=== PATIENT | male | born 1990 | race Two or more races ===

== ENCOUNTER 2020-04-15 11:05 | Emergency (ER) | payer BC, OTHER ==
[2020-04-15] MEDS ORDERED: Sodium Chloride 0.9% 10 ML Syringe FLUSH PRN (11:12)
[2020-04-15] MEDS ORDERED: Sodium Chloride 0.9% 2.5 ML Syringe FLUSH PRN (11:12)
[2020-04-15] MEDS ORDERED: Aspirin 81 MG Tab.Chew PO ONE (11:13)
--- NOTE | 2020-04-15 11:34 | CT ---
INDICATION: Stroke symptoms. COMPARISON: None. TECHNIQUE: CT head without intravenous contrast ;Coronal and sagittal reformats. FINDINGS: No intracranial hemorrhage. No mass lesions. No evidence of shift of the midline structures. The calvarium is unremarkable. The ventricular system, the subarachnoid cisterns and the cerebral sulci are unremarkable stalk. IMPRESSION: Negative unenhanced head CT. Please note that all CT scans at this facility use dose modulation, iterative reconstruction, and/or weight-based dosing when appropriate to reduce radiation dose to as low as reasonably achievable. Dictated by Claire Groves MD @ Apr 15 2020 11:31AM Signed by Dr. Claire Groves @ Apr 15 2020 11:34AM
[2020-04-15 11:59] LABS: BLOOD UREA NITROGEN,BUN 12 mg/dL (7.0-18.0); CARBON DIOXIDE,CO2 28.5 mmol/L (21.0-32.0); CHLORIDE,CL 102 mmol/L (98-107); GLUCOSE RANDOM 119 mg/dL (74-106); POTASSIUM,K 3.4 mmol/L (3.5-5.1); SODIUM,NA 138 mmol/L (136-148)
--- NOTE | 2020-04-15 12:01 | EDM.PDOC ---
ED [facility] GENERAL MEDICAL PROBLEM - General Chief Complaint: Neuro Symptoms/Deficits Stated Complaint: POSSIBLE STROKE Time Seen by Provider: 04/15/20 11:34 Source of Information: Reports: Patient, Old Records History Limitations: Reports: No Limitations - History of Present Illness INITIAL COMMENTS - FREE TEXT/NARRATIVE: 30-year-old male with no past medical history presenting with concern for stroke symptoms. Patient states that around 10:50 AM, he began experiencing numbness to the left side of his face along with weakness to his left upper extremity and left lower extremity. Since then, the tingling sensation to the face has resolved and the weakness to his left upper and lower extremities has improved but is still present. He denies any facial droop, slurred speech, visual changes, headache, neck pain, history of prior CVA or TIA, chest pain, or shortness of breath. ROS: A 10-point review of systems was negative, except as noted in the HPI (or in the ROS section of this note). Past medical history: Reviewed, no additional pertinent history. Surgical history: Reviewed in system, no additional pertinent history. Social history: Reviewed in system, no additional pertinent history. Family history: Reviewed in system, no additional pertinent history. PHYSICAL EXAM Vital signs reviewed. Nursing notes reviewed. Constitutional: Awake, alert, non-distressed. Head: Normocephalic, atraumatic. Eyes: Pupils 3 mm bilaterally, EOMI, conjunctiva normal, no discharge, no scleral icterus. Ears, Nose, Throat: External ears and nose normal, moist oral mucosa. Cardiovascular: 2+ radial pulse, capillary refill less than 2 seconds. Pulmonary: normal work of breathing, no accessory muscle use. Abdomen/GI: Soft, nontender, nondistended, no guarding or rigidity, no masses. Musculoskeletal: No deformities. Integumentary: Appropriate color for ethnicity, warm, dry, no pallor or jaundice , no rash. Neurologic: Awake, alert, and oriented x3. Cranial nerves II through XII intact. No facial droop or dysarthria. No temporal artery tenderness. Supple neck with normal range of motion. No pronator drift. Normal rliqtd-brkg-pefjzl and cepu-bf-nglj. No dysdiadochokinesia. 5/5 strength in all extremities. Sensation intact to light touch x4. Negative Romberg. Normal gait. Normal visual michele, no field cuts. Able to sit, stand, and ambulate without assistance. Psychiatric: Appropriate mood and affect, normal thought process. This patient was seen and evaluated during the 2019 SARS-CoV-2 novel coronavirus pandemic period. Community viral transmission is ongoing at time of this encounter and the emergency department is operating under pandemic response procedures. - Related Data Allergies Allergy/AdvReac Type Severity Reaction Status Date / Time No Known Allergies Allergy Verified 04/15/20 11:13 Home Meds: Home Meds Aspirin [Aspirin EC] 81 mg PO DAILY 30 Days #30 tablet. 04/15/20 [Rx] amLODIPine Besylate [Amlodipine Besylate] 10 mg PO DAILY 30 Days #30 tablet 04/15/20 [Rx] Past Medical History Cardiovascular History: Reports: Hypertension - Infectious Disease History Infectious Disease History: Reports: None Social & Family History - Family History Family Medical History: No Pertinent Family History - Tobacco Use Tobacco Use Status *Q: Unknown Ever Used Tobacco - Recreational Drug Use Recreational Drug Use: No ED ROS GENERAL - Review of Systems Review Of Systems: See Below ED EXAM, NEURO - Physical Exam Exam: See Below #1 Interpretation EKG Interpretation Comments: 12-Lead ECG Interpretation Acquired: 11:54 AM Rhythm: Sinus rhythm Rate: 74 bpm [place]: Normal Intervals: Normal Ectopy: None RV Strain: No obvious RV strain pattern. ST Segments/T-Waves: No notable changes Acute Ischemic Changes: None apparent Interpretation: No STEMI Course - Vital Signs Text/Narrative:: 30-year-old male presenting with complaints of left-sided facial numbness and left upper and lower extremity weakness. Patient hemodynamically stable, afebrile, well-appearing, looks nontoxic. Differential diagnosis includes but is not limited to: CVA, TIA, intracranial hemorrhage, demyelinating disease, MS, electrolyte disturbance, arrhythmia, anemia, and many others. Patient was declared a stroke code upon arrival. He was immediately roomed. His initial examination shows no neurologic deficits. NIH stroke scale is 0. The patient does complain of subjective weakness in the left arm and leg but I do not appreciate any weakness by examination. Patient was taken to the CT scanner for angiographic imaging of the head and neck, all CT studies are unremarkable. We obtained a twelve-lead EKG which shows no evidence of atrial fibrillation or ischemia. Labs are largely unremarkable, mild hypokalemia at 3.4. Negative troponin. Normal renal function and cell lines. I reevaluated the patient and he continues to have no evidence of any neurologic deficits. When I reevaluated him at approximately 12:30 PM, he states that the sensation of weakness in his left arm and leg have resolved and he feels that he is back to normal. He now has no symptoms. Symptoms have resolved so he is not a candidate for systemic thrombolysis. There was some concern for TIA given complete resolution of symptoms with a nonfocal examination. I did call our on-call neurologist Dr. Penelope Be to discuss the case. She states that she would like to see him in her clinic tomorrow morning at 8 AM. She plans to order an outpatient MRI. In the meantime we will start him on antihypertensive medications along with 81 mg of aspirin once daily until he can be seen by the neurologist. I also told him that he needs to follow-up with a family medicine clinic in the next few weeks for follow-up of his hypertension and for general medical examination. We did discuss ED return precautions including recurrence of symptoms, severe headache, slurred speech, facial droop, or any other new or concerning symptoms. The patient voiced understanding and had no further questions. He was discharged in good condition. Last Recorded V/S: Last Vital Signs Temp 36.7 C 04/15/20 11:13 Pulse 94 04/15/20 11:35 Resp 18 04/15/20 11:35 BP 171/90 H 04/15/20 11:35 Pulse Ox 98 04/15/20 11:35 - Orders/Labs/Meds Orders: Active Orders 24 hr Category Date Time Status Assess Neurological Status [RC] CONTINUOUS Care 04/15/20 11:18 Active Blood Glucose Check, Bedside [RC] STAT Care 04/15/20 11:18 Active Cardiac Monitoring [RC] . DIRECTED Care 04/15/20 11:12 Active EKG Documentation Completion [RC] STAT Care 04/15/20 11:12 Active Height and Weight [RC] UPON Care 04/15/20 11:18 Active NIH Stroke Scale [RC] Q15M Care 04/15/20 11:18 Active NIH Stroke Scale [RC] STAT Care 04/15/20 11:18 Active Nursing Bedside Swallow Screen [RC] STAT Care 04/15/20 11:18 Active Pulse Oximetry [RC] ASDIRECTED Care 04/15/20 11:12 Active Nothing Per Oral Diet [DIET] Diet 04/15/20 Breakfast Active Sodium Chloride 0.9% [Saline Flush] Med 04/15/20 11:12 Active 10 ml FLUSH ASDIRECTED PRN Sodium Chloride 0.9% [Saline Flush] Med 04/15/20 11:12 Active 2.5 ml FLUSH ASDIRECTED PRN Saline Lock Insert [OM.PC] Stat Oth 04/15/20 11:12 Ordered Medication Orders Sodium Chloride (Saline Flush) 10 ml FLUSH ASDIRECTED PRN PRN Reason: Keep Vein Open Last Admin: 04/15/20 11:35 Dose: 10 ml Documented by: LULA Sodium Chloride (Saline Flush) 2.5 ml FLUSH ASDIRECTED PRN PRN Reason: Keep Vein Open Last Admin: 04/15/20 11:35 Dose: 2.5 ml Documented by: LULA Labs: Laboratory Tests 04/15/20 04/15/20 04/15/20 Range/Units 11:10 11:10 11:10 WBC 6.49 (4.0-11.0) K/uL RBC 4.92 (4.50-5.90) M/uL Hgb 15.2 (13.0-17.0) g/dL Hct 44.5 (38.0-50.0) % MCV 90.4 (80.0-98.0) fL MCH 30.9 (27.0-32.0) pg MCHC 34.2 (31.0-37.0) g/dL RDW Std Deviation 41.2 (28.0-62.0) fl RDW Coeff of Flor 12 (11.0-15.0) % Plt Count 306 (150-400) K/uL MPV 9.90 (7.40-12.00) fL Neut % (Auto) 51.9 (48.0-80.0) % Lymph % (Auto) 35.9 (16.0-40.0) % [place] % (Auto) 11.4 (0.0-15.0) % Eos % (Auto) 0.6 (0.0-7.0) % Baso % (Auto) 0.2 (0.0-1.5) % Neut # (Auto) 3.4 (1.4-5.7) K/uL Lymph # (Auto) 2.3 (0.6-2.4) K/uL [place] # (Auto) 0.7 (0.0-0.8) K/uL Eos # (Auto) 0.0 (0.0-0.7) K/uL Baso # (Auto) 0.0 (0.0-0.1) K/uL Nucleated RBC % 0.0 /100WBC Nucleated RBCs # 0 K/uL INR 1.06 APTT 26.4 (18.6-31.3) SEC Sodium 138 (136-148) mmol/L Potassium 3.4 L (3.5-5.1) mmol/L Chloride 102 (98-107) mmol/L Carbon Dioxide 28.5 (21.0-32.0) mmol/L BUN 12 (7.0-18.0) mg/dL Creatinine 1.0 (0.8-1.3) mg/dL Est Cr Clr Drug Dosing 100.07 mL/min Estimated GFR (MDRD) > 60.0 ml/min Glucose 119 H (74-106) mg/dL Calcium 9.1 (8.5-10.1) mg/dL Total Bilirubin 0.3 (0.2-1.0) mg/dL AST 19 (15-37) IU/L ALT 32 (14-63) IU/L Alkaline Phosphatase 99 (46-116) U/L Troponin I < 0.050 (0.000-0.056) ng/mL Total Protein 8.3 H (6.4-8.2) g/dL Albumin 4.6 (3.4-5.0) g/dL Globulin 3.7 (2.6-4.0) g/dL Albumin/Globulin Ratio 1.2 (0.9-1.6) Meds: Medications Generic Name Dose Route Start Last Admin Trade Name Freq PRN Reason Stop Dose Admin Sodium Chloride 10 ml 04/15/20 11:12 04/15/20 11:35 Saline Flush FLUSH 10 ml ASDIRECTED PRN Administration Keep Vein Open Sodium Chloride 2.5 ml 04/15/20 11:12 04/15/20 11:35 Saline Flush FLUSH 2.5 ml ASDIRECTED PRN Administration Keep Vein Open Discontinued Medications Generic Name Dose Route Start Last Admin Trade Name Mor PRN Reason Stop Dose Admin Aspirin 324 mg 04/15/20 11:13 04/15/20 11:34 Aspirin PO 04/15/20 11:14 324 mg ONETIME ONE Administration Departure - Departure Time of Disposition: 12:41 Disposition: Home, Self-Care 01 Condition: Good Clinical Impression: Transient left leg weakness, Left arm weakness, Left facial numbness - Discharge Information *PRESCRIPTION DRUG MONITORING PROGRAM REVIEWED*: Not Applicable *COPY OF PRESCRIPTION DRUG MONITORING REPORT IN PATIENT JESSA: Not Applicable Prescriptions: amLODIPine Besylate [Amlodipine Besylate] 10 mg PO DAILY 30 Days #30 tablet Aspirin [Aspirin EC] 81 mg PO DAILY 30 Days #30 tablet.dr Instructions: Paresthesia Referrals: Penelope Be MD [Physician] - 1 Day (Follow-up tomorrow at 8 AM for your neurology clinic appointment.) Forms: ED Department Discharge Additional Instructions: You were seen in the emergency department for facial tingling and left arm and leg weakness. CT scans, blood work, and EKG look reassuring at this point. I am glad that your symptoms went away. We do want you to follow-up with the neurology clinic tomorrow at 8:00 in the morning. I did prescribe some medications for high blood pressure and some aspirin, take these as directed. You need to follow-up with a family medicine clinic in the next few weeks for follow-up of your high blood pressure. Warning signs to come back to the ER include: Facial droop, slurred speech, severe headache or neck pain, weakness of the arm or leg, or any other new or concerning symptoms. Please return the emergency department immediately if your symptoms worsen or if you feel worse. Thank you for choosing the [facility] emergency department in [place] for your medical needs today. It was a pleasure caring for you. The following information is given to patients seen in the emergency department who are being discharged. This information is to outline your options for follow-up care. We provide all patients seen in our emergency department with a follow-up referral. The need for follow-up, as well as the timing and circumstances, are variable de pending upon the specifics of your emergency department visit. If you don't have a primary care physician on staff, we will provide you with a referral. We always advise you to contact your personal physician following an emergency department visit to inform them of the circumstance of the visit and for follow-up with them and/or the need for any referrals to a consulting specialist. The emergency department will also refer you to a specialist when appropriate. This referral assures that you have the opportunity for follow-up care with a specialist. All of these measure are taken in an effort to provide you with optimal care, which includes your follow-up. Under all circumstances we always encourage you to contact your private physician who remains a resource for coordinating your care. When calling for follow-up care, please make the office aware that this follow-up is from your recent emergency room visit. If for any reason you are refused follow-up, please contact the [facility] Emergency Department at and asked to speak to the emergency department charge nurse. If you do not have a primary care physician that is caring for you, you can contact these clinics below to set up an appointment to establish care: [facility] - Primary Care [address] [place] [id number] [facility] [address] [place] [id number] Sepsis Event Note (ED) - Evaluation Sepsis Screening Result: No Definite Risk - Focused Exam Vital Signs: Vital Signs Temp Pulse Resp BP Pulse Ox 04/15/20 11:35 94 18 171/90 H 98 04/15/20 11:13 36.7 C 89 18 200/103 H 98 - My Orders Last 24 Hours: My Active Orders 04/15/20 Breakfast Nothing Per Oral Diet [DIET] 04/15/20 11:12 Cardiac Monitoring [RC] . DIRECTED EKG Documentation Completion [RC] STAT Pulse Oximetry [RC] ASDIRECTED Sodium Chloride 0.9% [Saline Flush] 10 ml FLUSH ASDIRECTED PRN Sodium Chloride 0.9% [Saline Flush] 2.5 ml FLUSH ASDIRECTED PRN Saline Lock Insert [OM.PC] Stat 04/15/20 11:18 Assess Neurological Status [RC] CONTINUOUS Blood Glucose Check, Bedside [RC] STAT Height and Weight [RC] UPON NIH Stroke Scale [RC] Q15M NIH Stroke Scale [RC] STAT Nursing Bedside Swallow Screen [RC] STAT - Assessment/Plan Last 24 Hours: My Active Orders 04/15/20 Breakfast Nothing Per Oral Diet [DIET] 04/15/20 11:12 Cardiac Monitoring [RC] . DIRECTED EKG Documentation Completion [RC] STAT Pulse Oximetry [RC] ASDIRECTED Sodium Chloride 0.9% [Saline Flush] 10 ml FLUSH ASDIRECTED PRN Sodium Chloride 0.9% [Saline Flush] 2.5 ml FLUSH ASDIRECTED PRN Saline Lock Insert [OM.PC] Stat 04/15/20 11:18 Assess Neurological Status [RC] CONTINUOUS Blood Glucose Check, Bedside [RC] STAT Height and Weight [RC] UPON NIH Stroke Scale [RC] Q15M NIH Stroke Scale [RC] STAT Nursing Bedside Swallow Screen [RC] STAT
--- NOTE | 2020-04-15 12:14 | CT ---
INDICATION: Acute stroke. TECHNIQUE: After standard noncontrast head CT, high resolution axial CT images acquired through the head and neck following rapid intravenous administration of iodinated contrast. Multiplanar MIPS of cranial and cervical vasculature performed. FINDINGS: Noncontrast head CT: There is no intracranial hemorrhage or fluid collection. The rodríguez-white matter differentiation is maintained. The ventricles are of normal morphology. The basal cisterns are clear. CTA head: There is normal filling of the intracranial vasculature; i.e. there is no large vessel occlusion or intracranial stenosis. There is no cerebral aneurysm or evidence for vascular malformation. CTA neck: Carotid arteries: There is no stenosis by NASCET criteria. There is no evidence for dissection. Vertebral arteries: There is no stenosis. There is no evidence for dissection. The soft tissues of the neck are within normal limits. The cervical spine is in normal alignment. The lung apices are clear. IMPRESSION: Unremarkable CT head, CTA head and neck. Beni Fuller MD Neurointerventional Radiologist [employer] Please note that all CT scans at this facility use dose modulation, iterative reconstruction, and/or weight-based dosing when appropriate to reduce radiation dose to as low as reasonably achievable. Dictated by Beni Fuller MD @ Apr 15 2020 12:02PM Signed by Dr. Beni Fuller @ Apr 15 2020 12:12PM
[2020-04-15] MEDS ORDERED: Iopamidol 755 MG/ML 500 ML Multipack Bottle IVPUSH STA (18:35)
== END 2020-04-15 12:52 | disposition home or self-care (01) ==
LOC: MW.ED 11:05
DX: M62.81 Muscle weakness (generalized) (principal); R20.0 Anesthesia of skin; I10 Essential (primary) hypertension; Z79.82 Long term (current) use of aspirin; Z79.899 Other long term (current) drug therapy
CPT/HCPCS: 36415; 70450; 70496; 70498; 80053; 84484; 85025; 85610; 85730; 93005; 99284; A9270; Q9967